=== PATIENT | female | born 1980 | race Caucasian/White ===

== ENCOUNTER 2019-06-02 19:54 | Emergency (ER) | payer OTHER ==
[~2019-06-02] VITALS: Ht 154.9 cm; Wt 86.2 kg
[~2019-06-02 19:54] MED LIST: BENTYL20 MG PO; BUSPIRONE HCL5 MG PO; CALCIUM 600 +1 EA11 PO; CARAFATE1 GM/10 ML PO; CIPROFLOXACIN500 M1 PO; DIAZEPAM 2MG TAB2 MG PO; DIFLUCAN150 MG PO; FIORICET PO; FISH OIL 1,0001 EAC5 PO; FLAGYL500 MG PO; GAS-X125 M1 PO; IBUPROFEN 800800 MG PO; LIDODERM 5%1 PATCH TOP; MS CONTIN15 MG PO; MULTIVITAMINS1 EAC7 PO; MYCELEX15 GM VAG; NOHOMEMEDICATIONS; PERCOCET 5-3251 EACH PO; PHENERGAN 25 MG25 M1; PHENERGAN 25 MG25 M1 PO; PHENERGAN 25 MG25 MG PO; PROPRANOLOL 1010 M1 PO; PROVENTIL HFA6.7 G1 INH; PROVENTIL17 G1 IH; REGLAN 5 MG TAB5 M1 PO; SENOKOT-S1 TA1 PO; TESSALON PERLE100 MG PO; TESSALON200 MG PO; TRAMADOL 50 MG50 MG PO; TYLENOL W/CODEI1 TA2 PO; ULTRACET TABLE1 EACH PO; ULTRAM 50MG TAB50 MG PO; VALIUM5 MG PO; VIIBRYD10 MG PO; XANAX 0.25 MG0.25 MG PO; ZOFRAN ODT4 MG PO; ZOFRAN4 MG PO; ZOLOFT 50 MG TA50 M1 PO; ZPAK PO
[2019-06-02 20:23] LABS: URINE BLOOD 1+ (Negative); URINE CLARITY CLEAR; URINE COLOR YELLOW; URINE GLUCOSE-RANDOM NEGATIVE (Negative); URINE KETONES NEGATIVE (Negative); URINE LEUKOCYTES-REFLEX NEGATIVE (Negative); URINE NITRITE-REFLEX NEGATIVE (Negative); URINE PROTEIN NEGATIVE (Negative); URINE SPECIFIC GRAVITY 1.025 (1.005-1.030); URINE UROBILINOGEN 0.2 E.U./dl (0.2-1.0)
[2019-06-02 20:25] LABS: URINE BILIRUBIN 1+ (Negative)
[2019-06-02 20:31] LABS: ABSOLUTE BASOPHILS 0.1 thou/uL (0.0-0.2); ABSOLUTE EOSINOPHILS 0.2 thou/uL (0.0-0.7); ABSOLUTE MONOCYTES 0.3 thou/uL (0.0-1.2); ABSOLUTE NEUTROPHILS 6.5 thou/uL (1.6-8.1); BASOPHILS 0.8 %; EOSINOPHILS 2.4 %; HEMATOCRIT 39.2 % (37.0-47.0); LYMPHOCYTES 21.7 %; MCH 30.8 pg (26.0-34.0); MCHC 33.2 g/dL (28.0-37.0); MCV 92.5 fL (80.0-100.0); MONOCYTES 3.7 %; MPV 7.5 fl. (7.2-11.1); NUCLEATED RBCS 0 /100WBC; PLATELET COUNT* 335 thou/uL (150-400); POLYS 71.4 %; RBC 4.24 mil/uL (4.20-5.00); RDW-CV 15.3 % (10.5-14.5); WBC 9.2 thou/uL (4.0-11.0)
[2019-06-02 20:33] LABS: ICTOTEST (BILI CONFIRMATORY) Negative (Negative)
[2019-06-02 20:34] LABS: CASTS None Seen /LPF (None Seen); CRYSTALS None Seen /LPF (None Seen); SQUAMOUS 0-3 Few /LPF (0-3); URINE RBC 0-2 Rare /HPF (0-2); URINE WBC-REFLEX 6-15 Few /HPF (0-5)
[2019-06-02 20:45] LABS: CALCIUM 8.9 mg/dL (8.5-10.1); CREATININE 0.7 mg/dL (0.6-1.3); POTASSIUM 3.8 mmol/L (3.5-5.1)
[2019-06-02 20:49] LABS: ALBUMIN 3.5 g/dL (3.4-5.0); TOTAL BILIRUBIN 0.7 mg/dL (<0.1-1.0); TOTAL PROTEIN 7.3 g/dL (6.4-8.2)
[2019-06-02] MEDS ORDERED: ZOFRAN ODT4 MG PO (21:34)
[2019-06-02] MEDS ORDERED: ULTRAM 50MG TAB50 MG PO (21:34)
[2019-06-02 21:49] VITALS: BP 112/64
[2019-06-02] MEDS ORDERED: ACETAMINOPHEN-1 EAC1 PO (22:07)
[2019-06-03] MEDS ORDERED: PHENERGAN 25 MG25 M1 PO (23:27)
== END 2019-06-02 22:19 | disposition home or self-care (01) ==
LOC: M.ERS 19:54
PROVIDERS: Personal Emergency Response Attendant
DX: R10.12 Left upper quadrant pain (principal); R11.2 Nausea with vomiting, unspecified; F17.210 Nicotine dependence, cigarettes, uncomplicated; Z86.2 Personal history of diseases of the blood and blood-forming organs and certain disorders involving the immune mechanism; Z90.49 Acquired absence of other specified parts of digestive tract; Z90.710 Acquired absence of both cervix and uterus; Z98.890 Other specified postprocedural states

== ENCOUNTER 2019-06-03 20:47 | Emergency (ER) | payer OTHER ==
[~2019-06-03] VITALS: Ht 154.9 cm; Wt 86.2 kg
[~2019-06-03 20:47] MED LIST changes: +ACETAMINOPHEN-1 EAC1 PO
[2019-06-03 21:49] LABS: ABSOLUTE BASOPHILS 0.1 thou/uL (0.0-0.2); ABSOLUTE EOSINOPHILS 0.2 thou/uL (0.0-0.7); ABSOLUTE LYMPHOCYTES 2.1 thou/uL (0.8-5.3); ABSOLUTE MONOCYTES 0.5 thou/uL (0.0-1.2); ABSOLUTE NEUTROPHILS 6.8 thou/uL (1.6-8.1); BASOPHILS 1.3 %; EOSINOPHILS 2.3 %; HEMATOCRIT 38.8 % (37.0-47.0); HEMOGLOBIN 13.1 gm/dL (12.0-15.0); LYMPHOCYTES 21.6 %; MCH 31.2 pg (26.0-34.0); MCHC 33.8 g/dL (28.0-37.0); MCV 92.2 fL (80.0-100.0); MONOCYTES 5.2 %; MPV 7.8 fl. (7.2-11.1); NUCLEATED RBCS 0 /100WBC; PLATELET COUNT* 349 thou/uL (150-400); POLYS 69.6 %; RBC 4.21 mil/uL (4.20-5.00); RDW-CV 15.4 % (10.5-14.5); WBC 9.8 thou/uL (4.0-11.0)
[2019-06-03 22:04] LABS: CALCIUM 9.2 mg/dL (8.5-10.1); CREATININE 0.6 mg/dL (0.6-1.3); POTASSIUM 4.2 mmol/L (3.5-5.1)
[2019-06-03 22:09] LABS: ALBUMIN 3.8 g/dL (3.4-5.0); TOTAL BILIRUBIN 0.6 mg/dL (<0.1-1.0); TOTAL PROTEIN 7.5 g/dL (6.4-8.2)
[2019-06-03 22:52] LABS: URINE BILIRUBIN NEGATIVE (Negative); URINE BLOOD NEGATIVE (Negative); URINE CLARITY CLEAR; URINE COLOR YELLOW; URINE GLUCOSE-RANDOM NEGATIVE (Negative); URINE KETONES NEGATIVE (Negative); URINE LEUKOCYTES-REFLEX NEGATIVE (Negative); URINE NITRITE-REFLEX NEGATIVE (Negative); URINE PROTEIN NEGATIVE (Negative)
[2019-06-03] MEDS ORDERED: PHENERGAN 25 MG25 M1 PO (23:27)
[2019-06-03 23:37] VITALS: BP 117/57
[2019-06-03 23:38] LABS: AMP/METHAMP Negative (Negative); BARBITURATES Negative (Negative); BENZODIAZEPINES Negative (Negative); COCAINE Negative (Negative); METHADONE Negative (Negative); OPIATES POSITIVE (Negative); PCP Negative (Negative); THC POSITIVE (Negative)
--- NOTE | 2019-06-04 11:49 | EKG ---
[place] [address] ELECTROCARDIOGRAM REPORT Name: OMAR GARDNER Room: [facility]#: [id number] Admission: 06/03/19 Attend Phys: Discharge: 06/03/19 Date of : 76 Report #: [id number] THIS REPORT FOR: //name// [facility] ED Test Date: 2019-06-03 Test Time: 21:47:23 Pat Name: OMAR GARDENR Department: Room: Gender: F [employer]: : 1980 Requested By: Anastacia Reinoso Order Number: [id number] MD: Godfrey Blue Measurements Intervals [place] Rate: 70 P: 45 W[place]: 151 QRS: 19 QRSD: 97 T: 24 QT: 398 QTc: 430 Interpretive Statements Sinus rhythm Compared to ECG 01/15/2014 02:26:48 No significant changes Electronically Signed On 06-04-2019 11:49:10 CDT by Godfrey Blue [email or web address] <ELECTRONICALLY SIGNED> By: Melody Blue MD, [facility] 06/04/19 [id number] Melody Blue MD, FACC /EPI
== END 2019-06-03 23:37 | disposition home or self-care (01) ==
LOC: M.ERS 20:47
PROVIDERS: Emergency Medicine; Nurse Practitioner Family
DX: R11.2 Nausea with vomiting, unspecified (principal); R10.12 Left upper quadrant pain; F17.210 Nicotine dependence, cigarettes, uncomplicated; Z88.6 Allergy status to analgesic agent; Z88.8 Allergy status to other drugs, medicaments and biological substances; Z88.0 Allergy status to penicillin; Z88.1 Allergy status to other antibiotic agents; Z86.2 Personal history of diseases of the blood and blood-forming organs and certain disorders involving the immune mechanism; Z90.49 Acquired absence of other specified parts of digestive tract; Z98.890 Other specified postprocedural states; Z90.710 Acquired absence of both cervix and uterus

== ENCOUNTER 2020-08-07 20:51 | Emergency (ER) | payer MEDICAID ==
[~2020-08-07] VITALS: Ht 154.9 cm; Wt 88.5 kg
[2020-08-07] MEDS ORDERED: HYDROCODON-ACE1 EAC8 PO (20:59)
[2020-08-07] MEDS ORDERED: CARAFATE1 GM PO (21:00)
[2020-08-07] MEDS ORDERED: PHENERGAN 25 MG25 M1 PO (21:00)
[2020-08-07] MEDS ORDERED: VALIUM2 MG PO (21:00)
[2020-08-07 22:11] VITALS: BP 115/86
== END 2020-08-07 22:11 | disposition home or self-care (01) ==
LOC: M.ERS 20:51
DX: S50.02XA Contusion of left elbow, initial encounter (principal); S80.11XA Contusion of right lower leg, initial encounter; F17.210 Nicotine dependence, cigarettes, uncomplicated; Z86.2 Personal history of diseases of the blood and blood-forming organs and certain disorders involving the immune mechanism; Z98.890 Other specified postprocedural states; Z90.710 Acquired absence of both cervix and uterus; Z90.49 Acquired absence of other specified parts of digestive tract; Z88.6 Allergy status to analgesic agent; Z88.0 Allergy status to penicillin; Z88.8 Allergy status to other drugs, medicaments and biological substances; W01.0XXA Fall on same level from slipping, tripping and stumbling without subsequent striking against object, initial encounter; Y93.E1 Activity, personal bathing and showering; Y92.89 Other specified places as the place of occurrence of the external cause; Y99.8 Other external cause status